=== PATIENT | male | born 1995 | race Caucasian/White ===

== ENCOUNTER 2018-06-14 15:01 | Inpatient (IN) | payer OTHER ==
[~2018-06-14] VITALS: Ht 177.8 cm; Wt 108.9 kg
[2018-06-14] MEDS ORDERED: ONDANSETRON PF 4 MG/2 ML VIAL. IV ONE (16:00)
[2018-06-14] MEDS ORDERED: fentaNYL PF VIAL 100 MCG/2 ML VIAL IV ONE (16:00)
[2018-06-14] MEDS ORDERED: IV NORMAL SALINE 1000ML BAG 1,000 ML IV ONE (16:00)
[2018-06-14 16:02] LABS: BASO # 0.1 x10^3/uL (0.0-0.2); BASO % 0 % (0-3); EOS % 0 % (0-3); HEMATOCRIT 44.5 % (39.0-53.0); HEMOGLOBIN 14.9 g/dL (13.0-17.5); LYMPH # 1.4 x10^3/uL (1.0-4.8); LYMPH % 10 % (24-48); MEAN CORPUSCULAR HEMOGLOBIN 29 pg (25-35); MEAN CORPUSCULAR HGB CONC 34 g/dL (31-37); MEAN CORPUSCULAR VOLUME 86 fL (79-100); MONO # 1.3 x10^3/uL (0.0-1.1); MONO % 9 % (0-9); NEUT # 11.3 x10^3uL (1.8-7.7); NEUT % 80 % (31-73); PLATELET COUNT 319 x10^3/uL (140-400); RED BLOOD COUNT 5.18 x10^6/uL (4.30-5.70); RED CELL DISTRIBUTION WIDTH 13.3 % (11.5-14.5)
--- NOTE | 2018-06-14 16:12 | PHYS DOC ---
Past Medical History Past Medical History: No Pertinent History Past Surgical History: No Surgical History Alcohol Use: None Drug Use: None Adult General Chief Complaint Chief Complaint: ABDOMINAL PAIN [facility] HPI Patient is a 23 year old male who presents with right lower quadrant pain. The patient states that he was having similar pain approximately 1 month ago but that resolved. He states that today the pain came back and was extremely worsened. He stopped at an urgent care and was sent for CT scan. This CT finding was consistent with appendicitis. He was told to come to the emergency department for further management of this condition. His last known intake was at 0745 this morning when he states he drinks some apple juice. He has not had anything else to eat or drink today. The patient is rating his pain as 7 out of 10 and has not taken [id number] medications for this pain. Review of Systems Review of Systems Constitutional: Denies fever or chills [] Respiratory: Denies cough or shortness of breath [] Cardiovascular: No additional information not addressed in HPI [] GI: See history of present illness : Denies dysuria or hematuria [] Musculoskeletal: Denies back pain or joint pain [] Integument: Denies rash or skin lesions [] Neurologic: Denies headache, focal weakness or sensory changes [] Endocrine: Denies polyuria or polydipsia [] All other systems were reviewed and found to be within normal limits, except as documented in this note. Current Medications Current Medications Allergies Allergies Allergies Coded Allergies Type Severity Reaction Last Updated Verified No Known Drug Allergies 04/13/15 No Physical Exam Physical Exam Constitutional: Well developed, well nourished, no acute distress, non-toxic appearance. [] HENT: Normocephalic, atraumatic, bilateral external ears normal, oropharynx moist, no oral exudates, nose normal. [] Eyes: PERRLA, EOMI, conjunctiva normal, no discharge. [] Neck: Normal range of motion, no tenderness, supple, no stridor. [] Cardiovascular:Heart rate regular rhythm, no murmur [] Lungs & Thorax: Bilateral breath sounds clear to auscultation [] Abdomen: Bowel sounds normal, soft, RLQ tenderness with guarding, no masses, no pulsatile masses. [] Skin: Warm, dry, no erythema, no rash. [] Neurologic: Alert and oriented X 3, normal motor function, normal sensory function, no focal deficits noted. [] Psychologic: Affect normal, judgement normal, mood normal. [] Current Patient Data Vital Signs Lab Values Laboratory Tests Test 06/14/18 15:47 White Blood Count 14.0 x10^3/uL (4.0-11.0) H Red Blood Count 5.18 x10^6/uL (4.30-5.70) Hemoglobin 14.9 g/dL (13.0-17.5) Hematocrit 44.5 % (39.0-53.0) Mean Corpuscular Volume 86 fL (79-100) Mean Corpuscular Hemoglobin 29 pg (25-35) Mean Corpuscular Hemoglobin Concent 34 g/dL (31-37) Red Cell Distribution Width 13.3 % (11.5-14.5) Platelet Count 319 x10^3/uL (140-400) Neutrophils (%) (Auto) 80 % (31-73) H Lymphocytes (%) (Auto) 10 % (24-48) L Monocytes (%) (Auto) 9 % (0-9) Eosinophils (%) (Auto) 0 % (0-3) Basophils (%) (Auto) 0 % (0-3) Neutrophils # (Auto) 11.3 x10^3uL (1.8-7.7) H Lymphocytes # (Auto) 1.4 x10^3/uL (1.0-4.8) Monocytes # (Auto) 1.3 x10^3/uL (0.0-1.1) H Eosinophils # (Auto) 0.0 x10^3/uL (0.0-0.7) Basophils # (Auto) 0.1 x10^3/uL (0.0-0.2) Sodium Level 136 mmol/L (136-145) Potassium Level 3.9 mmol/L (3.5-5.1) Chloride Level 99 mmol/L (98-107) Carbon Dioxide Level 26 mmol/L (21-32) Anion Gap 11 (6-14) Blood Urea Nitrogen 14 mg/dL (8-26) Creatinine 0.9 mg/dL (0.7-1.3) Estimated GFR (Cockcroft-Gault) 106.5 BUN/Creatinine Ratio 16 (6-20) Glucose Level 95 mg/dL (70-99) Calcium Level 9.0 mg/dL (8.5-10.1) Total Bilirubin 1.2 mg/dL (0.2-1.0) H Aspartate Amino Transferase (AST) 16 U/L (15-37) Alanine Aminotransferase (ALT) 20 U/L (16-63) Alkaline Phosphatase 90 U/L (46-116) Total Protein 8.1 g/dL (6.4-8.2) Albumin 3.8 g/dL (3.4-5.0) Albumin/Globulin Ratio 0.9 (1.0-1.7) L Laboratory Tests 06/14/18 15:47 Laboratory Tests 06/14/18 15:47 EKG EKG [] Radiology/Procedures Radiology/Procedures PATIENT: JACINTO NICK ACCOUNT: [id number] : 1995 LOCATION: [facility] AGE: 23 SEX: M EXAM STATUS: REG CLI ORD. PHYSICIAN: ANA GA DO, MS REASON: RLQ PAIN, EVALUATE FOR APPENDICITIS PROCEDURE: CT ABD PELV W/ORAL&IV CONTRAST CT scan of the abdomen and pelvis with contrast 06/14/2018 CLINICAL HISTORY: Right lower quadrant abdominal pain. TECHNIQUE: After the oral and intravenous administration of contrast, contiguous, 3 mm axial sections were obtained through the abdomen and pelvis. 100 cc of Omnipaque 300 were administered intravenously during this examination. One or more of the following individualized dose reduction techniques were utilized for this study: 1. Automated exposure control. 2. Adjustment of the mA and/or kV according to patient size. 3. Use of iterative reconstruction technique. FINDINGS: Images through the lung bases demonstrate two 4 mm nodular opacities lobe which have nonspecific CT appearance. This could represent areas of subsegmental atelectasis. The liver, spleen, pancreas, and adrenal glands are within normal limits. Rounded low-attenuation lesions are seen involving both kidneys which likely represent cysts. These measure 1 to 1.5 cm in size. The abdominal aorta tapers normally. The gallbladder is well-distended. No free fluid or free air is seen within the abdomen. There is no evidence of bowel obstruction. The mid/distal appendix is dilated with a thickened wall. It measures 1.4 cm in diameter. Increased density is seen within the adjacent fat. These findings are consistent with appendicitis. An oval-shaped fluid collection is seen near the tip of the appendix which measures 3.2 cm in greatest diameter. This is consistent with an abscess. Images through the pelvis demonstrate the urinary bladder to be contracted. A small amount of free fluid is seen within the pelvis. Very mild S-shaped curvature of the thoracolumbar spine is noted. IMPRESSION: Findings are seen consistent with acute appendicitis. A 3.2 cm abscess is seen near the tip of the appendix. These findings were discussed with Dr. Ga. Electronically signed by: Marlon Pantoja MD (06/14/2018 2:56 PM) [id number] DICTATED and SIGNED BY: MARLON PANTOJA MD DATE: 06/14/18 1450 Course & Med Decision Making Course & Med Decision Making Pertinent Labs and Imaging studies reviewed. (See chart for details) []Dr. Thomas, with surgery, was consulted in the care of this patient. The patient was given fentanyl and Zofran in the emergency department as well as a bolus of fluids. Dragon Disclaimer Dragon Disclaimer This electronic medical record was generated, in whole or in part, using a voice recognition dictation system. Departure Departure Impression: Primary Impression: Appendicitis with abscess Disposition: ADMITTED INPATIENT Condition: STABLE Referrals: ALIZA MENEZES MD (PCP) TAMY CHAPMAN APRN Jun 14, 2018 16:12
[2018-06-14 16:21] LABS: CREATININE 0.9 mg/dL (0.7-1.3); GFR 106.5; POTASSIUM 3.9 mmol/L (3.5-5.1)
[2018-06-14] MEDS ORDERED: IV RINGERS,LACTATED 1000ML 1,000 ML IV SCH (16:25)
[2018-06-14 16:28] LABS: ALBUMIN 3.8 g/dL (3.4-5.0); ALBUMIN/GLOBULIN RATIO 0.9 (1.0-1.7); TOTAL BILIRUBIN 1.2 mg/dL (0.2-1.0); TOTAL PROTEIN 8.1 g/dL (6.4-8.2)
[2018-06-14] MEDS ORDERED: ONDANSETRON PF 4 MG/2 ML VIAL. IV PRN (16:30)
[2018-06-14] MEDS ORDERED: HYDROmorphone 2 MG/ML VIAL IV PRN (16:30)
[2018-06-14] MEDS ORDERED: PIPERACILLIN/TAZOBACTAM 3.375 GM in IV NORMAL SALINE 50ML 50 ML IV ONE (16:30)
[2018-06-14] MEDS ORDERED: PROCHLORPERAZINE 10 MG/2 ML VIAL. IV PRN (16:30)
[2018-06-14] MEDS ORDERED: LIDOCAINE 1% PF 2 ML VIAL. ID PRN (16:30)
[2018-06-14] MEDS ORDERED: MORPHINE SULFATE 2 MG/ML VIAL. IV PRN (16:30)
[2018-06-14] MEDS ORDERED: fentaNYL PF VIAL 100 MCG/2 ML VIAL IV PRN (16:30)
[2018-06-14] MEDS ORDERED: PROPOFOL 0 ML IV ONE (17:39)
[2018-06-14] MEDS ORDERED: LIDOCAINE 2% PF 5 ML VIAL. ONE (17:39)
[2018-06-14] MEDS ORDERED: fentaNYL PF VIAL 100 MCG/2 ML VIAL ONE ×3 (17:40→20:54)
[2018-06-14] MEDS ORDERED: ROCURONIUM 50 MG/5 ML VIAL. ONE ×2 (17:40→18:29)
[2018-06-14 17:45] LABS: BILIRUBIN,URINE NEGATIVE (NEG); CLARITY,URINE CLEAR; COLOR,URINE YELLOW; NITRITE,URINE NEGATIVE (NEG); PROTEIN,URINE NEGATIVE (NEG-TRACE)
[2018-06-14 17:58] LABS: BACTERIA,URINE 0 /HPF (0-FEW); RBC,URINE 0 /HPF (0-2); WBC,URINE 0 /HPF (0-4)
--- NOTE | 2018-06-14 18:15 | PDOC1 ---
History and Physical Date of Admission Date of Admission DATE: 06/14/18 TIME: 18:07 Identification/Chief Complaint Chief Complaint RLQ pain Source Source: Chart review, Patient History of Present Illness History of Present Illness Godfrey is a 23 yo son of a [employer] employee who earlier today went to urgent care with RLQ pain. CT scan was obtained and showed an inflamed appendix with an associated air/fluid collection. He is brought for appendectomy Past Medical History Cardiovascular: No pertinent hx Pulmonary: No pertinent hx Renal/: No pertinent hx Past Surgical History Past Surgical History: Other (oral) Family History Family History: No Significant Social History Smoke: No ALCOHOL: none Drugs: None Current Medications Current Medications Current Medications Sodium Chloride 1,000 ml @ 1,000 mls/hr 1X ONCE IV Last administered on at 16:16; Start 06/14/18 at 16:00; Stop 06/14/18 at 16:59; Status DC Fentanyl Citrate (Fentanyl 2ml Vial) 50 mcg 1X ONCE IV Last administered on 06/14/18at 16:15; Start 06/14/18 at 16:00; Stop 06/14/18 at 16:01; Status DC Ondansetron HCl (Zofran) 4 mg 1X ONCE IV Last administered on 06/14/18at 16:15; Start 06/14/18 at 16:00; Stop 06/14/18 at 16:01; Status DC Piperacillin Sod/ Tazobactam Sod 3.375 gm/Sodium Chloride 50 ml @ 100 mls/hr 1X ONCE IV ; Start 06/14/18 at 16:30; Stop 06/14/18 at 16:59; Status DC Ondansetron HCl (Zofran) 4 mg PRN Q6HRS PRN IV NAUSEA/VOMITING; Start 06/14/18 at 16:30; Stop 06/15/18 at 16:29 Fentanyl Citrate (Fentanyl 2ml Vial) 25 mcg PRN Q5MIN PRN IV MILD PAIN; Start 06/14/18 at 16:30; Stop 06/15/18 at 16:29 Fentanyl Citrate (Fentanyl 2ml Vial) 50 mcg PRN Q5MIN PRN IV MODERATE TO SEVERE PAIN; Start 06/14/18 at 16:30; Stop 06/15/18 at 16:29 Morphine Sulfate (Morphine Sulfate) 1 mg PRN Q10MIN PRN IV SEVERE PAIN; Start 06/14/18 at 16:30; Stop 06/15/18 at 16:29 Ringer's Solution 1,000 ml @ 30 mls/hr Q24H IV ; Start 06/14/18 at 16:25; Stop 06/15/18 at 04:24 Lidocaine HCl (Xylocaine-Mpf 1% 2ml Vial) 2 ml PRN 1X PRN ID PRIOR TO IV START ; Start 06/14/18 at 16:30; Stop 06/15/18 at 16:29 Hydromorphone HCl (Dilaudid) 0.5 mg PRN Q10MIN PRN IV SEV PAIN, Second choice; Start 06/14/18 at 16:30; Stop 06/15/18 at 16:29 Prochlorperazine Edisylate (Compazine) 5 mg PACU PRN PRN IV NAUSEA, MRX1; Start 06/14/18 at 16:30; Stop 06/15/18 at 16:29 Propofol 20 ml @ As Directed STK-MED ONCE IV ; Start 06/14/18 at 17:39; Stop 06/14 at 17:40; Status DC Lidocaine HCl (Lidocaine Pf 2% Vial) 5 ml STK-MED ONCE .ROUTE ; Start 06/14/18 at 17:39; Stop 06/14/18 at 17:40; Status DC Fentanyl Citrate (Fentanyl 2ml Vial) 100 mcg STK-MED ONCE .ROUTE ; Start at 17:40; Stop 06/14/18 at 17:41; Status DC Rocuronium [place] (Zemuron) 50 mg STK-MED ONCE .ROUTE ; Start 06/14/18 at 17:40 ; Stop 06/14/18 at 17:41; Status DC Active Scripts Active Reported No Known Medications Prior To Admisstion (Info) Each 1 Each Allergies Allergies: Coded Allergies: No Known Drug Allergies (Unverified , 04/13/15) ROS Review of System negative with exception of current complaints Physical Exam General: Alert, Oriented X3, No acute distress HEENT: Atraumatic Lungs: Clear to auscultation Heart: RRR Abdomen: Soft, Other (TTP in the RLQ) Vitals Vitals Vital Signs Date Time Temp Pulse Resp B/P (MAP) Pulse Ox O2 Delivery O2 Flow Rate FiO2 3/8/19 16:15 20 06/14/18 15:56 98.7 100 132/64 (86) 98 Room Air 98.7 Labs Labs Laboratory Tests Test 06/14/18 15:47 06/14/18 17:38 White Blood Count 14.0 x10^3/uL (4.0-11.0) Red Blood Count 5.18 x10^6/uL (4.30-5.70) Hemoglobin 14.9 g/dL (13.0-17.5) Hematocrit 44.5 % (39.0-53.0) Mean Corpuscular Volume 86 fL (79-100) Mean Corpuscular Hemoglobin 29 pg (25-35) Mean Corpuscular Hemoglobin Concent 34 g/dL (31-37) Red Cell Distribution Width 13.3 % (11.5-14.5) Platelet Count 319 x10^3/uL (140-400) Neutrophils (%) (Auto) 80 % (31-73) Lymphocytes (%) (Auto) 10 % (24-48) Monocytes (%) (Auto) 9 % (0-9) Eosinophils (%) (Auto) 0 % (0-3) Basophils (%) (Auto) 0 % (0-3) Neutrophils # (Auto) 11.3 x10^3uL (1.8-7.7) Lymphocytes # (Auto) 1.4 x10^3/uL (1.0-4.8) Monocytes # (Auto) 1.3 x10^3/uL (0.0-1.1) Eosinophils # (Auto) 0.0 x10^3/uL (0.0-0.7) Basophils # (Auto) 0.1 x10^3/uL (0.0-0.2) Sodium Level 136 mmol/L (136-145) Potassium Level 3.9 mmol/L (3.5-5.1) Chloride Level 99 mmol/L (98-107) Carbon Dioxide Level 26 mmol/L (21-32) Anion Gap 11 (6-14) Blood Urea Nitrogen 14 mg/dL (8-26) Creatinine 0.9 mg/dL (0.7-1.3) Estimated GFR (Cockcroft-Gault) 106.5 BUN/Creatinine Ratio 16 (6-20) Glucose Level 95 mg/dL (70-99) Calcium Level 9.0 mg/dL (8.5-10.1) Total Bilirubin 1.2 mg/dL (0.2-1.0) Aspartate Amino Transf (AST/SGOT) 16 U/L (15-37) Alanine Aminotransferase (ALT/SGPT) 20 U/L (16-63) Alkaline Phosphatase 90 U/L (46-116) Total Protein 8.1 g/dL (6.4-8.2) Albumin 3.8 g/dL (3.4-5.0) Albumin/Globulin Ratio 0.9 (1.0-1.7) Urine Collection Type Unknown Urine Color Yellow Urine Clarity Clear Urine pH 7.0 Urine Specific [place] >=1.030 Urine Protein Negative mg/dL (NEG-TRACE) Urine Glucose (UA) Negative mg/dL (NEG) Urine Ketones (Stick) Negative mg/dL (NEG) Urine Blood Negative (NEG) Urine Nitrite Negative (NEG) Urine Bilirubin Negative (NEG) Urine Urobilinogen Dipstick 1.0 mg/dL (0.2 mg/dL) Urine Leukocyte Esterase Negative (NEG) Urine RBC 0 /HPF (0-2) Urine WBC 0 /HPF (0-4) Urine Bacteria 0 /HPF (0-FEW) Laboratory Tests Test 06/14/18 15:47 06/14/18 17:38 White Blood Count 14.0 x10^3/uL (4.0-11.0) Red Blood Count 5.18 x10^6/uL (4.30-5.70) Hemoglobin 14.9 g/dL (13.0-17.5) Hematocrit 44.5 % (39.0-53.0) Mean Corpuscular Volume 86 fL (79-100) Mean Corpuscular Hemoglobin 29 pg (25-35) Mean Corpuscular Hemoglobin Concent 34 g/dL (31-37) Red Cell Distribution Width 13.3 % (11.5-14.5) Platelet Count 319 x10^3/uL (140-400) Neutrophils (%) (Auto) 80 % (31-73) Lymphocytes (%) (Auto) 10 % (24-48) Monocytes (%) (Auto) 9 % (0-9) Eosinophils (%) (Auto) 0 % (0-3) Basophils (%) (Auto) 0 % (0-3) Neutrophils # (Auto) 11.3 x10^3uL (1.8-7.7) Lymphocytes # (Auto) 1.4 x10^3/uL (1.0-4.8) Monocytes # (Auto) 1.3 x10^3/uL (0.0-1.1) Eosinophils # (Auto) 0.0 x10^3/uL (0.0-0.7) Basophils # (Auto) 0.1 x10^3/uL (0.0-0.2) Sodium Level 136 mmol/L (136-145) Potassium Level 3.9 mmol/L (3.5-5.1) Chloride Level 99 mmol/L (98-107) Carbon Dioxide Level 26 mmol/L (21-32) Anion Gap 11 (6-14) Blood Urea Nitrogen 14 mg/dL (8-26) Creatinine 0.9 mg/dL (0.7-1.3) Estimated GFR (Cockcroft-Gault) 106.5 BUN/Creatinine Ratio 16 (6-20) Glucose Level 95 mg/dL (70-99) Calcium Level 9.0 mg/dL (8.5-10.1) Total Bilirubin 1.2 mg/dL (0.2-1.0) Aspartate Amino Transf (AST/SGOT) 16 U/L (15-37) Alanine Aminotransferase (ALT/SGPT) 20 U/L (16-63) Alkaline Phosphatase 90 U/L (46-116) Total Protein 8.1 g/dL (6.4-8.2) Albumin 3.8 g/dL (3.4-5.0) Albumin/Globulin Ratio 0.9 (1.0-1.7) Urine Collection Type Unknown Urine Color Yellow Urine Clarity Clear Urine pH 7.0 Urine Specific [place] >=1.030 Urine Protein Negative mg/dL (NEG-TRACE) Urine Glucose (UA) Negative mg/dL (NEG) Urine Ketones (Stick) Negative mg/dL (NEG) Urine Blood Negative (NEG) Urine Nitrite Negative (NEG) Urine Bilirubin Negative (NEG) Urine Urobilinogen Dipstick 1.0 mg/dL (0.2 mg/dL) Urine Leukocyte Esterase Negative (NEG) Urine RBC 0 /HPF (0-2) Urine WBC 0 /HPF (0-4) Urine Bacteria 0 /HPF (0-FEW) Images Images CT is reviewed VTE Prophylaxis Ordered VTE Prophylaxis Devices: Yes VTE Pharmacological Prophylaxi: No Assessment/Plan Assessment/Plan acute appendicitis with possible abscess to OR for laparoscopic appendectomy explained risks including but not limited to bleeding, infection, need for open procedure, drain he will proceed RAINER PHAM MD Jun 14, 2018 18:15
[2018-06-14] MEDS ORDERED: FAMOTIDINE 20 MG/2 ML VIAL ONE ×2 (18:29→18:54)
[2018-06-14] MEDS ORDERED: PROPOFOL 20 ML IV ONE (18:29)
[2018-06-14] MEDS ORDERED: DEXAMETHASONE SOD PHOS 20 MG/5 ML VIAL. ONE ×2 (18:29→18:54)
[2018-06-14] MEDS ORDERED: LIDOCAINE 1% PF 5 ML VIAL. ONE (18:30)
[2018-06-14] MEDS ORDERED: MIDAZOLAM HCL/PF 2 MG/2 ML VIAL. ONE (18:30)
[2018-06-14] MEDS ORDERED: BUPIVAC MPF-EPI 0.5%-1:200000 30 ML VIAL. ONE (19:28)
[2018-06-14] MEDS ORDERED: GLYCOPYRROLATE 1 MG/5 ML VIAL. ONE (19:34)
[2018-06-14] MEDS ORDERED: NEOSTIGMINE 10 MG/10 ML VIAL. ONE (19:34)
[2018-06-14] MEDS ORDERED: DESFLURANE 31 TO 60 MINUTES IH ONE (19:59)
[2018-06-14] MEDS ORDERED: ONDANSETRON PF 4 MG/2 ML VIAL. ONE (19:59)
[2018-06-14] MEDS ORDERED: 0.9 % SODIUM CHLORIDE 10 ML DISP.SYRIN. IV PRN (20:30)
[2018-06-14] MEDS ORDERED: DEXTROSE 50% 25 GM / 50ML DISP.SYRIN. IV PRN (20:30)
[2018-06-14] MEDS ORDERED: diphenhydrAMINE HCL 25 MG CAPSULE PO PRN (20:30)
--- NOTE | 2018-06-14 20:55 | PDOC ---
BRIEF OPERATIVE NOTE Date: Jun 14, 2018 Pre-Op Diagnosis acute appendicitis possible perforation Post-Op Diagnosis perforated appendicitis with abscess Procedure Performed l/s appendectomy Surgeon William Production Support Specialist Alisha SYLVESTER Anesthesia Type: General Blood Loss 20cc IV Fluid 1500cc Urine Output 300cc Specimens Obtained appendix Findings periappendiceal abscess Complications none Operative Note Wk # [id number] RAINER PHAM MD Jun 14, 2018 20:55
--- NOTE | 2018-06-14 21:18 | OP ---
DATE OF SURGERY: 06/14/2018 PREOPERATIVE DIAGNOSIS: Acute appendicitis, possible perforation. POSTOPERATIVE DIAGNOSIS: Perforated appendicitis with abscess. SURGEON: Jose Pham M.D. [employer] USER INTERFACE DEVELOPER: HIGINIO Steven. PROCEDURE: Laparoscopic appendectomy. ANESTHESIA: General. ESTIMATED BLOOD LOSS: 20 mL. INTRAVENOUS FLUIDS: 1500 mL. URINE OUTPUT: 300 mL. INDICATIONS: The patient is a 23-year-old with right-sided pain and a CT suggesting appendicitis with possible periappendiceal abscess. OPERATIVE FINDINGS: He did indeed have a perforated appendicitis with a localized abscess. DESCRIPTION OF PROCEDURE: The patient was brought to the operating suite, given a general endotracheal anesthetic and the abdomen prepped and draped in the usual sterile fashion. A supraumbilical incision was infiltrated with local anesthetic, incised and a 5-mm Visiport used to safely gain access into the abdominal cavity, taking care to avoid injury to abdominal contents. Pneumoperitoneum established. Camera inserted. Inspection carried out, with results as noted above. With the table rolled to the left, the suprapubic and left lower quadrant ports were placed under direct vision. The supraumbilical port was converted to 12 mm for instrumentation. Some adherent omentum was divided with LigaSure, being careful to avoid injury to the adjacent bowel. This exposed the base of the appendix. A rent was created between the appendix and the mesoappendix and the Endo-LAYLA stapler with a tissue load was used to divide the stump of the appendix. The mesoappendix was controlled with vascular loads x 2 and the appendix placed in an EndoCatch bag. Area was irrigated, evacuated and checked for hemostasis. When present, a 19-[place] round Pedro drain was brought through a right lower quadrant stab wound and left in the pericolic gutter and pelvis for postoperative drainage. Table returned to level. Appendix delivered through the supraumbilical port site. That area closed with a stitch of 0 Vicryl. No bleeding seen. No bleeding from the left lower quadrant port after its removal. Abdomen decompressed, camera slowly removed, no bleeding seen. Skin incisions closed with subcuticular 4-0 Monocryl and Steri-Strips. Sterile dressings applied. Bolden catheter removed. The patient was awakened from his anesthetic and taken to the recovery room in satisfactory condition. JOSE PHAM MD DR: Katelynn JOB#: [id number] / [id number]
[2018-06-14] MEDS: fentaNYL PF VIAL 100 MCG/2 ML VIAL IV PRN ×2 (21:24→21:36)
[2018-06-14 22:00] VITALS: BP 120/62
[2018-06-14] MEDS: POTASSIUM CL 20MEQ-0.45% NACL 1,000 ML IV SCH (22:18)
[2018-06-14] MEDS: HYDROmorphone 2 MG/ML VIAL IV PRN (22:22)
[2018-06-14 22:31] VITALS: BP 113/56
[2018-06-14 22:46] VITALS: BP 105/46
[2018-06-14 23:00] VITALS: BP 114/50
[2018-06-14 23:31] VITALS: BP 103/46
[2018-06-15] VITALS (10 sets, daily range): BP systolic 95–128; BP diastolic 48–70
--- NOTE | 2018-06-15 01:15 | NUR ---
Report given from [place] in PACU. Pt arrived post op from PACU at 10pm, frequent vital signs started, pt is drowsy and sedated. Incision clean dry and intact. Mother at bedside. Pt is stable. Will continue to monitor.
[2018-06-15] MEDS: oxyCODONE/APAP 5/325 1 TAB TABLET PO PRN ×4 (04:53→21:52)
[2018-06-15] MEDS: POTASSIUM CL 20MEQ-0.45% NACL 1,000 ML IV SCH ×2 (04:54→22:25)
[2018-06-15] MEDS: HYDROmorphone 2 MG/ML VIAL IV PRN ×2 (05:37→12:51)
[2018-06-15] MEDS: ONDANSETRON PF 4 MG/2 ML VIAL. IV PRN ×2 (05:37→18:35)
[2018-06-15] MEDS: ENOXAPARIN 40 MG/0.4 ML SYRINGE. SQ SCH (09:35)
--- NOTE | 2018-06-15 11:37 | PDOC ---
SURGICAL PROGRESS NOTE Subjective a little nausea earlier, otherwise doing well mom here Vital Signs Vital Signs Date Time Temp Pulse Resp B/P (MAP) Pulse Ox O2 Delivery O2 Flow Rate FiO2 06/15/18 10:46 18 Room Air 06/15/18 07:00 98.7 56 108/57 (74) 95 98.7 06/15/18 06:16 2.0 I&O Intake and Output 06/15/18 06:59 Intake Total 2150 ml Output Total 320 ml Balance 1830 ml Intake Oral 200 ml IV Total 1950 ml Output Urine Total 300 ml Estimated Blood Loss 20 ml # Voids 2 PATIENT HAS A SHIRLEY: No General: Alert, Oriented X3, No acute distress Abdomen: Soft, Other (AMPARO with some serosanguineous output) Labs Laboratory Tests Test 06/14/18 15:47 06/14/18 17:38 White Blood Count 14.0 x10^3/uL (4.0-11.0) Red Blood Count 5.18 x10^6/uL (4.30-5.70) Hemoglobin 14.9 g/dL (13.0-17.5) Hematocrit 44.5 % (39.0-53.0) Mean Corpuscular Volume 86 fL (79-100) Mean Corpuscular Hemoglobin 29 pg (25-35) Mean Corpuscular Hemoglobin Concent 34 g/dL (31-37) Red Cell Distribution Width 13.3 % (11.5-14.5) Platelet Count 319 x10^3/uL (140-400) Neutrophils (%) (Auto) 80 % (31-73) Lymphocytes (%) (Auto) 10 % (24-48) Monocytes (%) (Auto) 9 % (0-9) Eosinophils (%) (Auto) 0 % (0-3) Basophils (%) (Auto) 0 % (0-3) Neutrophils # (Auto) 11.3 x10^3uL (1.8-7.7) Lymphocytes # (Auto) 1.4 x10^3/uL (1.0-4.8) Monocytes # (Auto) 1.3 x10^3/uL (0.0-1.1) Eosinophils # (Auto) 0.0 x10^3/uL (0.0-0.7) Basophils # (Auto) 0.1 x10^3/uL (0.0-0.2) Sodium Level 136 mmol/L (136-145) Potassium Level 3.9 mmol/L (3.5-5.1) Chloride Level 99 mmol/L (98-107) Carbon Dioxide Level 26 mmol/L (21-32) Anion Gap 11 (6-14) Blood Urea Nitrogen 14 mg/dL (8-26) Creatinine 0.9 mg/dL (0.7-1.3) Estimated GFR (Cockcroft-Gault) 106.5 BUN/Creatinine Ratio 16 (6-20) Glucose Level 95 mg/dL (70-99) Calcium Level 9.0 mg/dL (8.5-10.1) Total Bilirubin 1.2 mg/dL (0.2-1.0) Aspartate Amino Transf (AST/SGOT) 16 U/L (15-37) Alanine Aminotransferase (ALT/SGPT) 20 U/L (16-63) Alkaline Phosphatase 90 U/L (46-116) Total Protein 8.1 g/dL (6.4-8.2) Albumin 3.8 g/dL (3.4-5.0) Albumin/Globulin Ratio 0.9 (1.0-1.7) Urine Collection Type Unknown Urine Color Yellow Urine Clarity Clear Urine pH 7.0 Urine Specific [place] >=1.030 Urine Protein Negative mg/dL (NEG-TRACE) Urine Glucose (UA) Negative mg/dL (NEG) Urine Ketones (Stick) Negative mg/dL (NEG) Urine Blood Negative (NEG) Urine Nitrite Negative (NEG) Urine Bilirubin Negative (NEG) Urine Urobilinogen Dipstick 1.0 mg/dL (0.2 mg/dL) Urine Leukocyte Esterase Negative (NEG) Urine RBC 0 /HPF (0-2) Urine WBC 0 /HPF (0-4) Urine Bacteria 0 /HPF (0-FEW) Laboratory Tests Test 06/14/18 15:47 06/14/18 17:38 White Blood Count 14.0 x10^3/uL (4.0-11.0) Red Blood Count 5.18 x10^6/uL (4.30-5.70) Hemoglobin 14.9 g/dL (13.0-17.5) Hematocrit 44.5 % (39.0-53.0) Mean Corpuscular Volume 86 fL (79-100) Mean Corpuscular Hemoglobin 29 pg (25-35) Mean Corpuscular Hemoglobin Concent 34 g/dL (31-37) Red Cell Distribution Width 13.3 % (11.5-14.5) Platelet Count 319 x10^3/uL (140-400) Neutrophils (%) (Auto) 80 % (31-73) Lymphocytes (%) (Auto) 10 % (24-48) Monocytes (%) (Auto) 9 % (0-9) Eosinophils (%) (Auto) 0 % (0-3) Basophils (%) (Auto) 0 % (0-3) Neutrophils # (Auto) 11.3 x10^3uL (1.8-7.7) Lymphocytes # (Auto) 1.4 x10^3/uL (1.0-4.8) Monocytes # (Auto) 1.3 x10^3/uL (0.0-1.1) Eosinophils # (Auto) 0.0 x10^3/uL (0.0-0.7) Basophils # (Auto) 0.1 x10^3/uL (0.0-0.2) Sodium Level 136 mmol/L (136-145) Potassium Level 3.9 mmol/L (3.5-5.1) Chloride Level 99 mmol/L (98-107) Carbon Dioxide Level 26 mmol/L (21-32) Anion Gap 11 (6-14) Blood Urea Nitrogen 14 mg/dL (8-26) Creatinine 0.9 mg/dL (0.7-1.3) Estimated GFR (Cockcroft-Gault) 106.5 BUN/Creatinine Ratio 16 (6-20) Glucose Level 95 mg/dL (70-99) Calcium Level 9.0 mg/dL (8.5-10.1) Total Bilirubin 1.2 mg/dL (0.2-1.0) Aspartate Amino Transf (AST/SGOT) 16 U/L (15-37) Alanine Aminotransferase (ALT/SGPT) 20 U/L (16-63) Alkaline Phosphatase 90 U/L (46-116) Total Protein 8.1 g/dL (6.4-8.2) Albumin 3.8 g/dL (3.4-5.0) Albumin/Globulin Ratio 0.9 (1.0-1.7) Urine Collection Type Unknown Urine Color Yellow Urine Clarity Clear Urine pH 7.0 Urine Specific [place] >=1.030 Urine Protein Negative mg/dL (NEG-TRACE) Urine Glucose (UA) Negative mg/dL (NEG) Urine Ketones (Stick) Negative mg/dL (NEG) Urine Blood Negative (NEG) Urine Nitrite Negative (NEG) Urine Bilirubin Negative (NEG) Urine Urobilinogen Dipstick 1.0 mg/dL (0.2 mg/dL) Urine Leukocyte Esterase Negative (NEG) Urine RBC 0 /HPF (0-2) Urine WBC 0 /HPF (0-4) Urine Bacteria 0 /HPF (0-FEW) Problem List Problems Medical Problems: (1) Appendicitis with abscess Status: Acute Assessment/Plan POD 1 l/s appendectomy for perforated appendix with abscess advance diet, continue IV abx, ambulate RAINER PHAM MD Jun 15, 2018 11:37
[2018-06-16 03:00] VITALS: BP 108/61
[2018-06-16 07:00] VITALS: BP 122/69
[2018-06-16] MEDS: oxyCODONE/APAP 5/325 1 TAB TABLET PO PRN (07:37)
[2018-06-16] MEDS: POTASSIUM CL 20MEQ-0.45% NACL 1,000 ML IV SCH (08:08)
[2018-06-16] MEDS: ENOXAPARIN 40 MG/0.4 ML SYRINGE. SQ SCH (09:00)
--- NOTE | 2018-06-16 09:02 | DISCH ---
DISCHARGE INSTRUCTIONS Condition on Discharge Condition on Discharge: Stable Activity After Discharge Activity Instructions for Disc: Activity as tolerated Lifting Instructions after Dis: No heavy lifting Driving Instructions after Dis: Do not drive (couple of days) Diet after Discharge Diet after Discharge: Regular Wound Incision Care Other wound/incision instructi: jasmin montgomery Follow-Up Follow up with: William 06/21 RAINER PHAM MD Jun 16, 2018 09:02
--- NOTE | 2018-06-16 09:04 | PDOC3 ---
Discharge Summary Visit Information Date of Admission: Jun 14, 2018 Date of Discharge: Jun 16, 2018 Admitting Diagnosis Comment: acute appendicitis with abscess Final Diagnosis Problems Medical Problems: (1) Appendicitis with abscess Status: Acute Brief Hospital Course Allergies Allergies Coded Allergies Type Severity Reaction Last Updated Verified No Known Drug Allergies 04/13/15 No Vital Signs Vital Signs Date Time Temp Pulse Resp B/P (MAP) Pulse Ox O2 Delivery O2 Flow Rate FiO2 06/16/18 07:37 Room Air 06/16/18 07:00 97.6 80 16 122/69 (86) 98 97.6 Lab Results Laboratory Tests Test 06/14/18 15:47 06/14/18 17:38 White Blood Count 14.0 x10^3/uL (4.0-11.0) Red Blood Count 5.18 x10^6/uL (4.30-5.70) Hemoglobin 14.9 g/dL (13.0-17.5) Hematocrit 44.5 % (39.0-53.0) Mean Corpuscular Volume 86 fL (79-100) Mean Corpuscular Hemoglobin 29 pg (25-35) Mean Corpuscular Hemoglobin Concent 34 g/dL (31-37) Red Cell Distribution Width 13.3 % (11.5-14.5) Platelet Count 319 x10^3/uL (140-400) Neutrophils (%) (Auto) 80 % (31-73) Lymphocytes (%) (Auto) 10 % (24-48) Monocytes (%) (Auto) 9 % (0-9) Eosinophils (%) (Auto) 0 % (0-3) Basophils (%) (Auto) 0 % (0-3) Neutrophils # (Auto) 11.3 x10^3uL (1.8-7.7) Lymphocytes # (Auto) 1.4 x10^3/uL (1.0-4.8) Monocytes # (Auto) 1.3 x10^3/uL (0.0-1.1) Eosinophils # (Auto) 0.0 x10^3/uL (0.0-0.7) Basophils # (Auto) 0.1 x10^3/uL (0.0-0.2) Sodium Level 136 mmol/L (136-145) Potassium Level 3.9 mmol/L (3.5-5.1) Chloride Level 99 mmol/L (98-107) Carbon Dioxide Level 26 mmol/L (21-32) Anion Gap 11 (6-14) Blood Urea Nitrogen 14 mg/dL (8-26) Creatinine 0.9 mg/dL (0.7-1.3) Estimated GFR (Cockcroft-Gault) 106.5 BUN/Creatinine Ratio 16 (6-20) Glucose Level 95 mg/dL (70-99) Calcium Level 9.0 mg/dL (8.5-10.1) Total Bilirubin 1.2 mg/dL (0.2-1.0) Aspartate Amino Transf (AST/SGOT) 16 U/L (15-37) Alanine Aminotransferase (ALT/SGPT) 20 U/L (16-63) Alkaline Phosphatase 90 U/L (46-116) Total Protein 8.1 g/dL (6.4-8.2) Albumin 3.8 g/dL (3.4-5.0) Albumin/Globulin Ratio 0.9 (1.0-1.7) Urine Collection Type Unknown Urine Color Yellow Urine Clarity Clear Urine pH 7.0 Urine Specific [place] >=1.030 Urine Protein Negative mg/dL (NEG-TRACE) Urine Glucose (UA) Negative mg/dL (NEG) Urine Ketones (Stick) Negative mg/dL (NEG) Urine Blood Negative (NEG) Urine Nitrite Negative (NEG) Urine Bilirubin Negative (NEG) Urine Urobilinogen Dipstick 1.0 mg/dL (0.2 mg/dL) Urine Leukocyte Esterase Negative (NEG) Urine RBC 0 /HPF (0-2) Urine WBC 0 /HPF (0-4) Urine Bacteria 0 /HPF (0-FEW) Brief Hospital Course Mr. Lee is a 23 old male who presented with right lower quadrant pain and a CT showing acute appendicitis with periappendiceal abscess Discharge Information Condition at Discharge: Improved Follow Up: As Needed Disposition/Orders: D/C to Home Miscellaneous Medications Info (No Known Medications Prior To Admisstion) Each, 1 EACH , (Reported) Entered as Reported by: JAYMIE RUTH on 04/13/15 0122 RAINER PHAM MD Jun 16, 2018 09:04
--- NOTE | 2018-06-16 09:07 | PDOC ---
Provider Note Provider Note SURG POD 2 VSS taking regular diet passing gas AMPARO with serosanguineous drainage d/c AMPARO home today f/u end of the week RAINER PHAM MD Jun 16, 2018 09:07
--- NOTE | 2018-06-16 12:09 | NUR ---
Patient discharged to home. Discharge instructions, medications, and follow up appointments discussed with patient and mother. Both verbalized understanding. Discharge instructions and prescriptions given to patient. IV and AMPARO drain dc'd. Patient tolerated well. Patient assisted out in wheelchair with staff and mother at this time.
--- NOTE | 2018-06-19 16:07 | PATHOLOGY ---
[facility] Accession Number: [id number] . 01 Material submitted: . APPENDIX . 01 Clinical history: . Acute appendicitis, perforated appendix with abscess . 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 See comment. . (JPM:pit:db 06/19/2018) QTP/06/19/2018 . 02 Comment: Sections of the appendix show transmural chronic inflammation. This is accompanied by noncaseating granulomas within the submucosa, fibromuscular wall, and subserosal/mesoappendiceal adipose tissue. There is a focal area of perforation of the distal appendix with periappendiceal abscess, serosal acute inflammatory exudate, and acute and chronic periappendicitis. Properly controlled stains for acid fast bacilli and fungi are obtained on block A3 and yield the following results: . AFB (A3): Negative for acid fast bacilli GMS stain (A3): Negative for yeast/fungi . The findings are indicative of a chronic granulomatous appendicitis with focal perforation and periappendiceal abscess, and are suspicious for Crohn's disease involving the appendix. (JPM/db; 06/19/2018) . Special stains performed: AFB and GMS on A3 . 02 Electronically signed: . Pantera Dominique MD, Pathologist NPI- [id number] . 01 Gross description: . The specimen is received in formalin, labeled "Godfrey Lee, appendix", is an appendix measuring 4.5 cm in length with an average 0.7 cm diameter. The proximal resection margin is closed by a linear staple line measuring 1.5 cm in length with an average 0.2 cm width. The staple line and the adjacent serosa is inked black. The attached mesoappendix is dark brown, indurated and measures 3.0 x 3.0 x 2.0 cm. The serosa is gomes-brown and diffusely covered by segovia-white fibrinopurulent material that extends to the adjacent mesoappendix. The distal tip is fibrosed with a possible perforation. The lumen is filled with black-brown hemorrhagic material and no discrete fecalith. The wall has an average thickness of 0.3 cm. Sound Effects Technician tissue is submitted as follows: A1. Proximal margin and proximal appendix, cross-section A2. Mid appendix, cross-section and adjacent mesoappendix. A3-A4. Distal tip, bisected. (A3 = possible perforation) ([facility]; 06/17/2018) SHS/SHS . 02 Pathologist provided ICD-10: K36, K35.80, K35.33 . 02 CPT . 589889, [id number], [id number] Specimen Comment: A courtesy copy of this report has been sent to Specimen Comment: [phone], . Specimen Comment: Report sent to / DR MENEZES Performed at: 01 [facility] [address], [place], [place] [id number] MD Bryant Joya MD Phone: [phone] Performed at: 02 [facility] [address], [place] [id number] MD Pantera Dominique MD Phone: [phone]
== END 2018-06-16 12:15 | disposition home or self-care (01) | DRG 340 ==
LOC: ER 15:01 → 4 NORTH 15:53
PROVIDERS: ADMIT Surgery; ATTEND Surgery
PROC: 0DTJ4ZZ Resection of Appendix, Percutaneous Endoscopic Approach (ICD-10-PCS; principal; 2018-06-14 18:30)
DX: K35.33 Acute appendicitis with perforation, localized peritonitis, and gangrene, with abscess (principal); Z79.899 Other long term (current) drug therapy
CPT/HCPCS: 36415; 80053; 81001; 85025; 88304; 88312; 96374; A7015; J0696; J1100; J1170; J1650; J2001; J2250; J2405; J2543; J2704; J2710; J3010; J3490; J7030; J7120; 99285-25

== ENCOUNTER → 2018-06-14 | Outpatient (CLI) | payer OTHER ==
[~2018-06-14] MED LIST: IOHEXOL 240 MG/ML 50ML VIAL. PO ONE; IOHEXOL 300 MG/ML 100ML VIAL. IV ONE
--- NOTE | 2018-06-14 14:59 | KCIC ---
CT scan of the abdomen and pelvis with contrast 06/14/2018 CLINICAL HISTORY: Right lower quadrant abdominal pain. TECHNIQUE: After the oral and intravenous administration of contrast, contiguous, 3 mm axial sections were obtained through the abdomen and pelvis. 100 cc of Omnipaque 300 were administered intravenously during this examination. One or more of the following individualized dose reduction techniques were utilized for this study: 1. Automated exposure control. 2. Adjustment of the mA and/or kV according to patient size. 3. Use of iterative reconstruction technique. FINDINGS: Images through the lung bases demonstrate two 4 mm nodular opacities lobe which have nonspecific CT appearance. This could represent areas of subsegmental atelectasis. The liver, spleen, pancreas, and adrenal glands are within normal limits. Rounded low-attenuation lesions are seen involving both kidneys which likely represent cysts. These measure 1 to 1.5 cm in size. The abdominal aorta tapers normally. The gallbladder is well-distended. No free fluid or free air is seen within the abdomen. There is no evidence of bowel obstruction. The mid/distal appendix is dilated with a thickened wall. It measures 1.4 cm in diameter. Increased density is seen within the adjacent fat. These findings are consistent with appendicitis. An oval-shaped fluid collection is seen near the tip of the appendix which measures 3.2 cm in greatest diameter. This is consistent with an abscess. Images through the pelvis demonstrate the urinary bladder to be contracted. A small amount of free fluid is seen within the pelvis. Very mild S-shaped curvature of the thoracolumbar spine is noted. IMPRESSION: Findings are seen consistent with acute appendicitis. A 3.2 cm abscess is seen near the tip of the appendix. These findings were discussed with Dr. Dixon. Electronically signed by: Marlon Pantoja MD (06/14/2018 2:56 PM) [id number]
== END | disposition home or self-care (01) ==
LOC: KCIC 13:09
PROVIDERS: ATTEND Family Medicine
DX: K35.33 Acute appendicitis with perforation, localized peritonitis, and gangrene, with abscess (principal)
CPT/HCPCS: 74177; Q9966; Q9967